=== PATIENT | male | born 1990 | race Caucasian/White ===

== ENCOUNTER 2017-06-09 21:13 | Emergency (ER) | payer SELFPAY ==
[2017-06-09 21:17] VITALS: RESP 18; TEMP 98.2; O2SAT 96
--- NOTE | 2017-06-09 22:05 | EDPHY ---
H & P Stated Complaint: Back pain - Personal History Current Tetanus/Diphtheria Vaccine: Unsure Current Tetanus Diphtheria and Acellular Pertussis (TDAP): Unsure - Medical/Surgical History Hx Asthma: No Hx Chronic Respiratory Disease: No Hx Diabetes: No Hx Cardiac Disease: No Hx Renal Disease: No Hx Cirrhosis: No Hx Alcoholism: No Hx HIV/AIDS: No Hx Splenectomy or Spleen Trauma: No Other PMH: Denies. - Social History Smoking Status: Heavy smoker HPI/ROS: Chief complaint: Back pain, medical clearance for prison History of present illness: 26-year-old male brought to the emergency department by EMS, accompanied by police for evaluation of back pain. Apparently patient was tackled by police why they were trying to apprehend him. Patient is complaining of pain in his upper back and neck. He denies trauma to other parts of the body. He denies neurologic symptoms such as paresthesias , weakness or paralysis or bowel or bladder dysfunction. There was no loss of consciousness. Review of systems: A 10 point review of systems was obtained and other than described above was negative (Emerson Win) - Physical Exam Exam: General Appearance: Alert, nontoxic Eyes: PERRLA ENT: No hemotympanum, no Baker sign, no raccoon eyes Respiratory: Lungs clear to auscultation bilaterally Cardiac: Regular rate and rhythm. Gastrointestinal: Soft, nondistended, nontender Neurological: Alert. Cranial nerves 2-12 grossly intact. Strength and sensation intact and symmetrical. Skin: No lesions consistent with acute trauma Musculoskeletal: Patient in a C-collar by EMS. Head is nontender, there is diffuse tenderness to the cervical and upper thoracic spine both midline and paraspinally. The rest of the spine is nontender. No crepitus, bony deformity or step-off appreciated. Patient moving all extremities without difficulty. (Emerson Win) Constitutional: Initial Vital Signs Temperature (C) 36.8 C 06/09/17 21:14 Heart Rate 104 H 06/09/17 21:14 Respiratory Rate 18 06/09/17 21:14 Blood Pressure 152/82 H 06/09/17 21:14 O2 Sat (%) 96 06/09/17 21:14 O2 Delivery Mode Room Air Allergies/Adverse Reactions: No Known Allergies Allergy (Unverified 06/09/17 21:25) Home Medications: Medication Instructions Recorded NK [No Known Home Meds] 06/09/17 Medical Decision Making - Diagnostics Imaging: Discussed imaging studies w/ call box wirer Radiologist, I viewed and interpreted images myself ED Course/Re-evaluation: Patient seen in conjunction with my secondary supervising physician Dr. Paz Parada. Patient presents to the emergency department for back and neck pain after being tackled by police. On presentation he is nontoxic. Physical exam reveals diffuse tenderness to the back, he has a nonfocal neurologic exam. Imaging studies are negative. C-collar was removed by my attending physician Dr. Parada. Patient is discharged in the care of the police. (Emerson Win) The patient was evaluated and managed by the physician engineer third assistant. I have reviewed this chart and I agree with the findings and plan of care as documented , as indicated by my signature. I am the secondary supervising physician. ( Paz Parada) Differential Diagnosis: Included but not limited to contusion, sprain, strain, fracture, intervertebral disc herniation, spinal cord injury (Emerson Win) Departure - Departure Disposition: Law Enforcement/Court/Long Term Condition: Good Instructions: Back Pain (ED) Additional Instructions: Follow-up with primary care doctor for recheck Symptoms worsen or new symptoms develop return to the emergency room for recheck Medically cleared to go to prison Referrals: NONE *PRIMARY CARE P,. [Primary Care Provider] - As per Instructions
[2017-06-09 22:31] VITALS: BP 146/81; PULSE 98
== END 2017-06-09 22:32 ==
LOC: MERGE 21:13
DX: M54.6 Pain in thoracic spine (principal); F17.200 Nicotine dependence, unspecified, uncomplicated

== ENCOUNTER 2017-11-22 22:28 | Emergency (ER) | payer SELFPAY ==
[2017-11-22] MEDS ORDERED: CLINDAMYCIN 600 MG/DEXTROSE 50 ML IV ONE (22:33)
[2017-11-22 22:44] LABS: PLATELET COUNT 412 10^3/uL (150-400)
[2017-11-22] MEDS ORDERED: NS 1,000 ML IV ONE (23:55)
[2017-11-23 00:34] VITALS: BP 134/79; PULSE 98; RESP 16; TEMP 98.4; O2SAT 98
--- NOTE | 2017-11-23 00:38 | EDPHY ---
H & P Stated Complaint: found shooting up heroine in [employer] bathroom Source: Patient, EMS - Personal History Current Tetanus/Diphtheria Vaccine: Yes Current Tetanus Diphtheria and Acellular Pertussis (TDAP): Yes - Medical/Surgical History Hx Asthma: No Hx Chronic Respiratory Disease: No Hx Diabetes: No Hx Cardiac Disease: No Hx Renal Disease: No Hx Cirrhosis: No Hx Alcoholism: No Hx HIV/AIDS: No Hx Splenectomy or Spleen Trauma: No Other PMH: ADD OR ADHD, IVDA, BIPOLAR, DEPRESSION - Social History Smoking Status: Heavy smoker Time Seen by Provider: 11/22/17 22:33 HPI/ROS: HPI The patient presents with altered mental status, found in the [employer] bathroom, concern for heroin injection. The patient was brought in by ambulance and police. His paramedics report that they did not have to administer any medication, patient's respiratory rate this about 10, vital signs were otherwise normal. He does have an obvious abscess of his right upper extremity. He says this is painful, otherwise denies any other complaints. REVIEW OF SYSTEMS Constitutional: No fever, no chills. Eyes: No discharge. ENT: No sore throat. Cardiovascular: No chest pain, no palpitations. Respiratory: No cough, no shortness of breath. Gastrointestinal: No abdominal pain, no vomiting. Genitourinary: No hematuria. Musculoskeletal: No back pain. Skin: No rashes. Neurological: No headache. PMHx: Mental health problems Soc Hx: Injection drug user, homeless PHYSICAL General Appearance: Sedate in no acute distress, disheveled with poor hygiene Eyes: Pupils 2-3 mm and equal ENT, Mouth: Mucous membranes moist Respiratory: There are no retractions, lungs are clear to auscultation Cardiovascular: Slightly tachycardic rate and regular rhythm Gastrointestinal: Abdomen is soft and non-tender, no masses, bowel sounds normal Neurological: A&O, moves all extremities Skin: Warm and dry, no rashes Musculoskeletal: Neck is supple non tender Extremities: Right upper arm on flexor surface, overlying the biceps muscle there is a area of erythema with firmness and fluctuance Psychiatric: Patient is oriented X 3, there is no agitation (Riguzzi,Brittany) Constitutional: Initial Vital Signs Temperature (C) 36.6 C 11/22/17 22:20 Heart Rate 106 H 11/22/17 22:20 Respiratory Rate 18 11/22/17 22:20 Blood Pressure 145/85 H 11/22/17 22:20 O2 Sat (%) 92 11/22/17 22:20 O2 Delivery Mode Nasal Cannula O2 (L/minute) 2 Allergies/Adverse Reactions: altram Allergy (Uncoded 11/22/17 22:41) Home Medications: Medication Instructions Recorded Dextroamphetamine/Amphetamine 30 mg PO DAILY 11/22/17 [Adderall 10 mg Tablet] Clindamycin HCl [Clindamycin] 300 mg PO TID #30 cap 11/23/17 Medical Decision Making Procedures: I was asked by Dr. Multani to drain abscess on the patient's right arm. Procedure: Abscess drainage. The patient's abscess was located on the right arm. Risks, benefits, alternatives discussed with the patient and consent obtained. The abscess was incised with a #11 blade and purulent drainage was expressed. Large amount of induration is noted. The wound was packed with iodoform gauze. The patient did not tolerate the packing well. The patient tolerated the procedure well. The procedure was performed by myself. (Silvia Dias) Differential Diagnosis: This is a 27-year-old male with history of injection drug use, heroin, who presents brought in by ambulance after found shooting drugs in the [employer] bathroom. He does not have any systemic signs of illness such as fever, chills, nausea or vomiting. He is currently under arrest and will be going to [facility]. In the emergency department, the patient was monitored. He was given a dose of clindamycin IV for his abscess. Silvia Eaton performed incision and drainage. He is somewhat sedate. He did not receive any medications. He denies any complaints, though has a right-sided arm abscess. After fluids and antibiotics, his tachycardia improved. Labs were relatively unremarkable. He will be discharged into police custody to [facility] where wound check could be performed in 2 days. Differential diagnosis includes heroin overdose, skin abscess, skin cellulitis. (Birttany Multani) - Data Points Laboratory Results: Laboratory Results 11/22/17 22:30 11/22/17 22:30 11/22/17 11/22/17 22:30 22:30 WBC 10.52 10^3/uL H 10^3/uL (3.80-9.50) RBC 5.53 10^6/uL 10^6/uL (4.40-6.38) Hgb 14.7 g/dL g/dL (13.7-17.5) Hct 46.0 % % (40.0-51.0) MCV 83.2 fL fL (81.5-99.8) MCH 26.6 pg L pg (27.9-34.1) MCHC 32.0 g/dL L g/dL (32.4-36.7) RDW 16.3 % H % (11.5-15.2) Plt Count 412 10^3/uL H 10^3/uL (150-400) MPV 8.6 fL L fL (8.7-11.7) Neut % (Auto) 68.6 % % (39.3-74.2) Lymph % (Auto) 19.6 % % (15.0-45.0) Webb % (Auto) 8.9 % % (4.5-13.0) Eos % (Auto) 2.2 % % (0.6-7.6) Baso % (Auto) 0.3 % % (0.3-1.7) Nucleat RBC Rel Count 0.0 % % (0.0-0.2) Absolute Neuts (auto) 7.22 10^3/uL H 10^3/uL (1.70-6.50) Absolute Lymphs (auto) 2.06 10^3/uL 10^3/uL (1.00-3.00) Absolute Monos (auto) 0.94 10^3/uL H 10^3/uL (0.30-0.80) Absolute Eos (auto) 0.23 10^3/uL 10^3/uL (0.03-0.40) Absolute Basos (auto) 0.03 10^3/uL 10^3/uL (0.02-0.10) Absolute Nucleated RBC 0.00 10^3/uL 10^3/uL (0-0.01) Immature Gran % 0.4 % % (0.0-1.1) Immature Gran # 0.04 10^3/uL 10^3/uL (0.00-0.10) Sodium 139 mEq/L mEq/L (135-145) Potassium 4.7 mEq/L mEq/L (3.5-5.2) Chloride 98 mEq/L mEq/L (97-110) Carbon Dioxide 31 mEq/l mEq/l (22-31) Anion Gap 10 mEq/L mEq/L (8-16) BUN 17 mg/dL mg/dL (7-23) Creatinine 0.6 mg/dL L mg/dL (0.7-1.3) Estimated GFR > 60 Glucose 100 mg/dL mg/dL (70-100) Calcium 9.8 mg/dL mg/dL (8.5-10.4) Total Bilirubin 0.4 mg/dL mg/dL (0.1-1.4) AST 77 IU/L H IU/L (17-59) ALT 129 IU/L H IU/L (21-72) Alkaline Phosphatase 88 IU/L IU/L (38-126) Total Protein 8.1 g/dL g/dL (6.3-8.2) Albumin 4.3 g/dL g/dL (3.5-5.0) Medications Given: Discontinued Medications Clindamycin Phosphate/Dextrose (Cleocin 600 Mg (Premix)) 50 mls @ 100 mls/hr IV EDNOW ONE PRN Reason: Protocol Stop: 11/22/17 23:02 Last Admin: 11/22/17 23:16 Dose: 50 mls Sodium Chloride (Ns) 1,000 mls @ 0 mls/hr IV ONCE ONE PRN Reason: Wide Open Stop: 11/22/17 23:56 Last Admin: 11/22/17 23:56 Dose: 1,000 mls Departure - Departure Disposition: Home, Routine, Self-Care Clinical Impression: Altered mental status, Heroin use, Abscess of arm, right Condition: Good Instructions: Clindamycin (By mouth), Abscess (ED) Additional Instructions: Remove packing from wound in 2 days. Take the antibiotics as prescribed. STOP SHOOTING DRUGS Referrals: [facility],. [Clinic] - As per Instructions Prescriptions: Clindamycin HCl [Clindamycin] 300 mg PO TID #30 cap
== END 2017-11-23 01:40 | disposition home or self-care (01) ==
LOC: EDUNIT#
PROC: 0H9BXZZ Drainage of Right Upper Arm Skin, External Approach (ICD-10-PCS; principal; 2017-11-22)
DX: R41.82 Altered mental status, unspecified (principal); L02.413 Cutaneous abscess of right upper limb; F11.90 Opioid use, unspecified, uncomplicated; F17.200 Nicotine dependence, unspecified, uncomplicated
CPT/HCPCS: 96365